=== PATIENT | male | born 1930 | race Caucasian/White ===

== ENCOUNTER 2018-06-23 10:04 | Inpatient (IN) | payer OTHER ==
[~2018-06-23] VITALS: Ht 185.4 cm; Wt 105.7 kg
[2018-06-23 10:05] VITALS: BP_SYST 140
[2018-06-23 10:46] LABS: BASOPHILS # (AUTO) 0.1 K/uL (0.0-0.2); BASOPHILS % (AUTO) 0.5 % (0.0-2.0); EOSINOPHILS # (AUTO) 0.5 K/uL (0.0-0.4); EOSINOPHILS % (AUTO) 4.5 % (0.0-4.0); HEMATOCRIT 34.6 % (36-54); HEMOGLOBIN 11.8 g/dL (14.0-18.0); LYMPHOCYTES # (AUTO) 2.6 K/uL (1.0-5.5); MEAN CORPUSCULAR HEMOGLOBIN 33 pg (27-31); MEAN CORPUSCULAR HGB CONC 34 % (32-36); MEAN CORPUSCULAR VOLUME 96 fL (79.0-98.0); MONOCYTES # (AUTO) 0.7 K/uL (0.0-1.0); MONOCYTES % (AUTO) 6.2 % (1.7-9.3); NEUTROPHILS # (AUTO) 7.6 K/uL (1.8-7.7); NEUTROPHILS % (AUTO) 65.8 % (40.0-70.0); PLATELET COUNT (AUTO) 220 K/uL (130-430); RED CELL DISTRIBUTION WIDTH 14.3 % (9.0-15.0); WHITE BLOOD COUNT (AUTO) 11.5 K/uL (4.8-10.8)
[2018-06-23 11:02] LABS: ANION GAP 8 (5-15); CALCIUM 9.2 mg/dL (8.4-11.0); CHLORIDE 108 mmol/L (98-107); CREATININE 2.08 mg/dL (0.55-1.30); GLUCOSE 160 mg/dL (70-99); SODIUM SERUM 138 mmol/L (136-145); UREA NITROGEN, BLOOD 53 mg/dL (8-21)
[2018-06-23 11:12] LABS: ALANINE AMINOTRANSFERASE 32 U/L (12-78); ALBUMIN 3.3 g/dL (3.4-4.8); ASPARTATE AMINOTRANSFERASE 19 U/L (10-37); TOTAL BILIRUBIN 0.5 mg/dL (0.0-1.0)
[2018-06-23 11:18] LABS: POTASSIUM 5.9 mmol/L (3.5-5.1)
[2018-06-23] MEDS ORDERED: NOR10 PO (11:56)
[2018-06-23] MEDS ORDERED: INSU100V11 SQ ×2 (11:56→13:31)
[2018-06-23] MEDS ORDERED: LISI-600 PO (11:56)
[2018-06-23] MEDS ORDERED: GLIM2TAB2 PO (11:56)
[2018-06-23] MEDS ORDERED: DONE10TA37 PO (11:56)
[2018-06-23] MEDS ORDERED: ALLO100T PO ×2 (11:56→13:31)
[2018-06-23] MEDS ORDERED: NACL 0.9% 1,000 ML IV ONE (12:30)
[2018-06-23] MEDS ORDERED: SODIUM POLYSTYRENE SULFONATE 15 GM/60 ML UDBTL PO ONE ×2 (12:45→16:45)
[2018-06-23 13:11] VITALS: BP_SYST 139
[2018-06-23 13:15] VITALS: BP_SYST 139
[2018-06-23 15:23] VITALS: BP_SYST 138
[2018-06-23] MEDS ORDERED: DEXTROSE 50% JECT 50 ML DISP.SYRIN IVP PRN (16:45)
[2018-06-23] MEDS: ACETAMINOPHEN 325 MG TABLET PO PRN (17:31)
[2018-06-23] MEDS: INSULIN REGULAR, HUMAN 100 UNITS/ML, 10 ML VIAL (novoLIN R) SUBCUT PRN ×2 (19:09→23:37)
[2018-06-23 20:00] VITALS: BP_SYST 137
[2018-06-24 00:12] VITALS: BP_SYST 128
[2018-06-24 08:06] VITALS: BP_SYST 136
[2018-06-24] MEDS: ALBUTEROL SULFATE 0.083% 2.5 MG/3 ML VIAL.NEB INH SCH ×5 (09:15→23:00)
[2018-06-24] MEDS ORDERED: IPRATROPIUM BROM 0.5 MG/2.5 ML VIAL.NEB (ATROVENT) INH PRN (09:15)
[2018-06-24] MEDS ORDERED: LORazepam 1 MG TABLET PO PRN (09:15)
[2018-06-24] MEDS ORDERED: ALBUTEROL SULFATE 0.083% 2.5 MG/3 ML VIAL.NEB INH PRN (09:15)
[2018-06-24 09:55] LABS: ANION GAP 7 (5-15); CALCIUM 9.1 mg/dL (8.4-11.0); CHLORIDE 110 mmol/L (98-107); GLUCOSE 185 mg/dL (70-99); POTASSIUM 5.2 mmol/L (3.5-5.1); SODIUM SERUM 140 mmol/L (136-145); UREA NITROGEN, BLOOD 44 mg/dL (8-21)
[2018-06-24 11:32] VITALS: BP_SYST 129
[2018-06-24] MEDS: IPRATROPIUM BROM 0.5 MG/2.5 ML VIAL.NEB (ATROVENT) INH SCH ×4 (11:34→23:00)
[2018-06-24] MEDS: INSULIN REGULAR, HUMAN 100 UNITS/ML, 10 ML VIAL (novoLIN R) SUBCUT PRN (11:58)
[2018-06-24 13:48] VITALS: BP_SYST 136
[2018-06-24 15:15] VITALS: BP_SYST 128
[2018-06-24 19:50] VITALS: BP_SYST 131
[2018-06-25 01:05] LABS: BILIRUBIN,URINE NEGATIVE (NEGATIVE); BLOOD, URINE NEGATIVE (NEGATIVE); CLARITY/URINE CLEAR (CLEAR); COLOR,URINE YELLOW (YELLOW); GLUCOSE,URINE NEGATIVE (NEGATIVE); KETONES,URINE NEGATIVE (NEGATIVE); LEUKOCYTE ESTERASE ,URINE NEGATIVE (NEGATIVE); NITRITE, URINE NEGATIVE (NEGATIVE); PH,URINE 5.5 (5.0-8.0); PROTEIN URINE NEGATIVE (NEGATIVE); UROBILINOGEN,URINE 0.2 (0.2-1.0)
[2018-06-25 01:09] VITALS: BP_SYST 134
[2018-06-25 06:35] LABS: ANION GAP 8 (5-15); CALCIUM 8.6 mg/dL (8.4-11.0); CHLORIDE 109 mmol/L (98-107); CREATININE 1.75 mg/dL (0.55-1.30); GLUCOSE 120 mg/dL (70-99); POTASSIUM 5.3 mmol/L (3.5-5.1); SODIUM SERUM 140 mmol/L (136-145); UREA NITROGEN, BLOOD 38 mg/dL (8-21)
[2018-06-25 06:44] LABS: ALANINE AMINOTRANSFERASE 14 U/L (12-78); ASPARTATE AMINOTRANSFERASE 16 U/L (10-37); TOTAL BILIRUBIN 0.6 mg/dL (0.0-1.0)
[2018-06-25 07:05] LABS: BASOPHILS # (AUTO) 0.1 K/uL (0.0-0.2); BASOPHILS % (AUTO) 0.7 % (0.0-2.0); EOSINOPHILS # (AUTO) 0.6 K/uL (0.0-0.4); EOSINOPHILS % (AUTO) 5.3 % (0.0-4.0); HEMATOCRIT 31.9 % (36-54); HEMOGLOBIN 10.9 g/dL (14.0-18.0); LYMPHOCYTES # (AUTO) 2.5 K/uL (1.0-5.5); LYMPHOCYTES % (AUTO) 23.8 % (20.5-51.5); MEAN CORPUSCULAR HEMOGLOBIN 33 pg (27-31); MEAN CORPUSCULAR HGB CONC 34 % (32-36); MEAN CORPUSCULAR VOLUME 96 fL (79.0-98.0); MONOCYTES # (AUTO) 0.6 K/uL (0.0-1.0); NEUTROPHILS # (AUTO) 6.7 K/uL (1.8-7.7); NEUTROPHILS % (AUTO) 64.2 % (40.0-70.0); PLATELET COUNT (AUTO) 189 K/uL (130-430); RED BLOOD CELL COUNT(AUTO) 3.32 MIL/uL (4.2-6.2); RED CELL DISTRIBUTION WIDTH 13.6 % (9.0-15.0); WHITE BLOOD COUNT (AUTO) 10.5 K/uL (4.8-10.8)
[2018-06-25] MEDS: ALBUTEROL SULFATE 0.083% 2.5 MG/3 ML VIAL.NEB INH SCH ×3 (07:16→15:07)
[2018-06-25] MEDS: IPRATROPIUM BROM 0.5 MG/2.5 ML VIAL.NEB (ATROVENT) INH SCH ×3 (07:16→15:07)
[2018-06-25 08:00] VITALS: BP_SYST 132
[2018-06-25] MEDS: ACETAMINOPHEN 325 MG TABLET PO PRN (10:17)
[2018-06-25] MEDS: INSULIN REGULAR, HUMAN 100 UNITS/ML, 10 ML VIAL (novoLIN R) SUBCUT PRN (11:48)
[2018-06-25 12:00] VITALS: BP_SYST 114
[2018-06-25] MEDS ORDERED: LEVE500T53 PO (13:06)
[2018-06-25] MEDS ORDERED: levETIRAcetam 500 MG TABLET PO ONE (13:15)
[2018-06-25] MEDS ORDERED: SODIUM POLYSTYRENE SULFONATE 15 GM/60 ML UDBTL GT ONE (13:30)
[2018-06-25 15:14] VITALS: BP_SYST 119
[2018-06-25 16:14] VITALS: BP_SYST 119
[2018-06-25] MEDS ORDERED: levETIRAcetam 500 MG TABLET PO SCH (21:00)
== END 2018-06-25 17:40 | disposition home or self-care (01) | DRG 100 ==
LOC: SED 10:04 → STU 12:30
PROVIDERS: ADMIT Internal Medicine Hospice and Palliative Medicine; ATTEND Internal Medicine Hospice and Palliative Medicine
DX: G40.89 Other seizures (principal); N17.0 Acute kidney failure with tubular necrosis; N17.9 Acute kidney failure, unspecified; E87.5 Hyperkalemia; I12.9 Hypertensive chronic kidney disease with stage 1 through stage 4 chronic kidney disease, or unspecified chronic kidney disease; M10.9 Gout, unspecified; N18.9 Chronic kidney disease, unspecified; E11.22 Type 2 diabetes mellitus with diabetic chronic kidney disease; Z79.899 Other long term (current) drug therapy; Z79.4 Long term (current) use of insulin; Z87.891 Personal history of nicotine dependence; Z85.820 Personal history of malignant melanoma of skin
CPT/HCPCS: 36415; 36600; 70450-TC; 71045; 76770; 80048; 80053; 81003; 82803-TC; 82962; 83880; 84484; 85025; 93005; 93306; 94640; 94760; 95816; 97110-GP; 97116-GP; 97530-GP; 99285; J7030; J7613